=== PATIENT | female | born 1990 | race Caucasian/White ===

== ENCOUNTER 2016-06-02 20:22 | Emergency (ER) | payer SELFPAY ==
[~2016-06-02] VITALS: Ht 152.4 cm; Wt 61.0 kg
[~2016-06-02 20:22] MED LIST: ALPR0.5T PO; CEPH500C PO; FERR325T31; LORA1TAB PO; NAPR-688 PO; OXYC-283 PO
[2016-06-02 20:30] VITALS: Ht 152.4 cm; Wt 61.0 kg
[2016-06-02] MEDS ORDERED: BACTDS PO (21:27)
[2016-06-02] MEDS ORDERED: CEPH-443 PO (21:27)
--- NOTE | 2016-06-02 21:27 | ERD ---
ER Documentation Chief Complaint Date/Time DATE: 06/02/16 TIME: 21:25 Chief Complaint Pt reports bump on chin has been getting worse for 3 days HPI This is a 26-year-old female presents to the emergency room for evaluation of a bump on her chin. The patient states that she thinks was bit by a spider. She states it is been for 3 days and has been getting worse. She denies any fevers associated with this and came to the ER for evaluation. ROS All systems reviewed and are negative except as per history of present illness. Medications Home Meds Discontinued Reported Medications Ferrous Sulfate (Ferosul) 325 Mg Tablet 07/22/09 Allergies Allergies: Coded Allergies: No Known Allergy (Verified , 06/02/16) Physical Exam Vitals Vital Signs Date Time Temp Pulse Resp B/P Pulse Ox O2 Delivery O2 Flow Rate FiO2 06/02/16 20:30 98.5 91 20 125/75 98 Physical Exam Const: No acute distress Head: Cellulitis of chin, no fluctuance or abscess. Eyes: Normal Conjunctiva ENT: No pharyngeal edema or erythema normal External Ears, Nose and Mouth. Neck: Full range of motion..~ No meningismus. Resp: Clear to auscultation bilaterally Cardio: Regular rate and rhythm, no murmurs Abd: Soft, non tender, non distended. Normal bowel sounds Skin: No petechiae or rashes Back: No midline or flank tenderness Ext: No cyanosis, or edema Neur: Awake and alert Psych: Normal Mood and Affect Procedures/MDM This 26 oh female presents to the emergency room for evaluation of an abscess. I evaluated this patient she does have cellulitis of her chin likely from previous acne. This patient has no pharyngeal involvement or edema. She is in no respiratory distress. She is tolerating secretions. She is afebrile. She was given Keflex and Bactrim in the emergency room. She will be discharged home with a prescription for Keflex, Bactrim, [place] for breakthrough pain. Departure Diagnosis: Primary Impression: Cellulitis of chin Condition: Stable GIOVANA JORGENSEN DO Jun 02, 2016 21:27
[2016-06-02] MEDS ORDERED: HYDR-906 PO (21:28)
[2016-06-02] MEDS ORDERED: TRIMETHOPRIM/SULFAMETHOX (DS) TAB PO ONE (21:30)
[2016-06-02] MEDS ORDERED: CEPHALEXIN 500 MG CAP PO ONE (21:30)
[2016-06-02] MEDS ORDERED: HYDROCODONE/APAP (5/325) TAB PO ONE (21:30)
[2016-06-03] MEDS ORDERED: ONDA4TAB8 PO (11:32)
[2016-06-03] MEDS ORDERED: BEN25 PO (11:32)
== END 2016-06-02 22:03 | disposition home or self-care (01) ==
LOC: MERGE 20:22 → E/R 20:22
DX: L03.211 Cellulitis of face (principal); W57.XXXA Bitten or stung by nonvenomous insect and other nonvenomous arthropods, initial encounter; Y92.9 Unspecified place or not applicable
CPT/HCPCS: 99284

== ENCOUNTER 2016-06-03 09:03 | Emergency (ER) | payer MEDICAID ==
[~2016-06-03] VITALS: Wt 76.0 kg
[~2016-06-03 09:03] MED LIST changes: +BACTDS PO; +CEPH-443 PO; -FERR325T31; +HYDR-906 PO
[2016-06-03] MEDS ORDERED: ONDANSETRON 4 MG INJ IV STA (09:28)
[2016-06-03] MEDS ORDERED: SOD CHLORIDE 0.9% 1,000 ML IV STA (09:28)
[2016-06-03 09:46] LABS: URINE BLOOD (Dip) POC 3+ (NEGATIVE)
--- NOTE | 2016-06-03 09:47 | ERD ---
ER Documentation Chief Complaint Date/Time DATE: 06/03/16 TIME: 09:44 Chief Complaint VOMITING FOLLOWING NEW MEDICATION HPI This is a 26-year-old female presenting to the emergency department for vomiting and bilateral flank pain. Patient states she seen in the ED yesterday and started on 3 new medications: Bactrim, Keflex and Tomball. Patient states she was prescribed these for possible infection from a spider bite. Patient states soon after taking these medications he developed vomiting. Nonbloody, nonbilious emesis. Patient has not been able to tolerate anything by mouth for the past 6 hours. Patient states she is feeling dizzy. Dizziness worsens when she lies down. Denies abdominal pain or diarrhea. No cough, difficulty breathing or shortness of breath. ROS All systems reviewed and are negative except as per history of present illness. Medications Home Meds Active Scripts Diphenhydramine Hcl* (Benadryl*) 25 Mg Cap, 25 MG PO Q6, #15 CAP Prov:CHUNG DIAZ NP 06/03/16 Ondansetron Hcl* (Zofran*) 4 Mg Tablet, 4 MG PO Q6H for NAUSEA AND/OR VOMITING, #10 TAB Prov:CHUNG DIAZ NP 06/03/16 Alprazolam* (Xanax*) 0.5 Mg Tab, 0.5 MG PO Q8H Y for ANXIETY, #14 TAB Prov:SIDDHARTH JUARES DO 09/20/15 Naproxen* (Naproxen*) 500 Mg Tablet, 500 MG PO BID, #20 TAB Prov:SIDDHARTH JUARES DO 09/20/15 Cephalexin* (Cephalexin*) 500 Mg Capsule, 500 MG PO Q8, #21 CAP Prov:SIDDHARTH JUARES DO 09/20/15 Oxycodone Hcl-Acetaminophen* (Percocet*) 7.5-325 Mg Tablet, 1 TAB PO Q4H, #24 TAB Prov:SIDDHARTH JUARES DO 09/20/15 Lorazepam* (Lorazepam*) 1 Mg Tablet, 1 MG PO Q8H Y for ANXIETY, #10 TAB Prov:REBEKA CARRIZALES 08/20/15 Allergies Allergies: Coded Allergies: shellfish derived (Verified Allergy, Unknown, 08/20/15) PMhx/Soc History of Surgery: No Anesthesia Reaction: No Hx Neurological Disorder: No Hx Respiratory Disorders: No Hx Cardiac Disorders: No Hx Psychiatric Problems: No Hx Miscellaneous Medical Probl: No Hx Alcohol Use: Yes Hx Substance Use: No Hx Tobacco Use: Yes Smoking Status: Current some day smoker Physical Exam Vitals Vital Signs Date Time Temp Pulse Resp B/P Pulse Ox O2 Delivery O2 Flow Rate FiO2 06/03/16 11:58 98.1 88 18 108/67 99 Room Air 06/03/16 09:09 100.1 101 18 145/65 99 Physical Exam Const: No acute distress, alert Head: Atraumatic Eyes: Normal Conjunctiva ENT: Normal External Ears, Nose and Mouth. Neck: Full range of motion..~ No meningismus. Resp: Clear to auscultation bilaterally Cardio: Regular rate and rhythm, no murmurs Abd: Soft, non tender, non distended. Normal bowel sounds Skin: Small cyst to middle of chin. Surrounding erythema. No area of fluctuance. Back: No midline or flank tenderness Ext: No cyanosis, or edema Neur: Awake and alert Psych: Normal Mood and Affect Result Diagram: 06/03/16 0940 06/03/16 0940 Results 24 hrs Laboratory Tests Test 06/03/16 09:40 06/03/16 09:45 White Blood Count 15.410^3/ul Red Blood Count 4.8710^6/ul Hemoglobin 13.3g/dl Hematocrit 41.7% Mean Corpuscular Volume 85.6fl Mean Corpuscular Hemoglobin 27.3pg Mean Corpuscular Hemoglobin Concent 31.9g/dl Red Cell Distribution Width 16.5% Platelet Count 66030^3/UL Mean Platelet Volume 9.9fl Neutrophils % 85.0% Band Neutrophils % 7.0% Lymphocytes % 6.0% Monocytes % 2.0% Eosinophils % % Basophils % % Nucleated Red Blood Cells % /100WBC Neutrophils # 13.110^3/ul Lymphocytes # 0.910^3/ul Monocytes # 0.310^3/ul Eosinophils # 10^3/ul Basophils # 10^3/ul Nucleated Red Blood Cells # 10^3/ul Differential Comment MANUAL DIFF Sodium Level 141mmol/L Potassium Level 4.0mmol/L Chloride Level 101mmol/L Carbon Dioxide Level 26mmol/L Anion Gap 18 Blood Urea Nitrogen 12mg/dl Creatinine 0.87mg/dl Glucose Level 123mg/dl Calcium Level 10.0mg/dl Total Bilirubin 0.7mg/dl Direct Bilirubin 0.00mg/dl Indirect Bilirubin 0.7mg/dl Aspartate Amino Transf (AST/SGOT) 24IU/L Alanine Aminotransferase (ALT/SGPT) 21IU/L Alkaline Phosphatase 84IU/L Total Protein 9.3g/dl Albumin 5.1g/dl Globulin 4.20g/dl Albumin/Globulin Ratio 1.21 Bedside Urine pH (LAB) 6.0 Bedside Urine Protein (LAB) 1+ Bedside Urine Glucose (UA) Negative Bedside Urine Ketones (LAB) Trace Bedside Urine Blood 3+ Bedside Urine Nitrite (LAB) Negative Bedside Urine Leukocyte Esterase (L 1+ Current Medications Medications (Trade) Dose Ordered Sig/Luis Route PRN Reason Start Time Stop Time Status Last Admin Dose Admin Sodium Chloride (NS) 1,000 ml @ 1,000 mls/hr Q1H STAT IV 06/03/16 09:28 06/03/16 10:27 DC 06/03/16 09:44 Ondansetron HCl (Zofran Inj) 8 mg ONCE STAT IV 06/03/16 09:28 06/03/16 09:31 DC 06/03/16 09:44 Ketorolac Tromethamine (Toradol) 30 mg ONCE STAT IV 06/03/16 10:29 06/03/16 10:32 DC 06/03/16 10:36 Clindamycin Phosphate 600 mg 600 mg ONCE ONCE IV 06/03/16 11:00 06/03/16 11:01 Cancel Clindamycin HCl/ Dextrose (Cleocin 600 Mg/ D5W (Pmx)) 50 ml @ 50 mls/hr ONCE IVPB 06/03/16 11:00 06/03/16 11:59 DC 06/03/16 10:55 Procedures/MDM ED COURSE: The patient was stable throughout ED course. I kept the patient and/or family informed of laboratory and diagnostic imaging results throughout the ED course. Laboratory CBC shows WBC 15.4 CMP unremarkable Microbiology Influenza swab A negative Influenza swab B negative Imaging Patient: PARKER FAIRBANKS : 1990 Age: 26 Sex: F MR #: [id number] DOS: 06/03/16 1029 Ordering MD: CHUNG DIAZ NP Location: [facility] Room/Bed: PROCEDURE: CT Abdomen and Pelvis without contrast. CLINICAL INDICATION: Vomiting TECHNIQUE: CT of the abdomen and pelvis was performed on a multi-detector scanner without IV contrast. Coronal and sagittal images were reformatted from the axial data set. One or more of the following dose reduction techniques were used: automated exposure control, adjustment of the mA and/or kV according to patient size, use of iterative reconstruction technique. CTDI = 7.35 mGy. DLP = 414.76 mGy-cm. COMPARISON: Ultrasound, 08/20/2015 FINDINGS: CT abdomen: The lung bases are clear. The heart size is normal, without pericardial effusion. Liver, gallbladder, biliary tree, pancreas, spleen, adrenal glands and kidneys are unremarkable. There is no urolithiasis or obstructive uropathy. The stomach is grossly unremarkable. The aorta is of normal caliber. There is no retroperitoneal lymphadenopathy. The flor hepatis region is clear. CT pelvis: No bowel obstruction, free intraperitoneal air or abscess is identified. There is no diverticulosis, diverticulitis, or colitis. The appendix is well visualized and normal. IUD is seen in normal position within the uterus. Urinary bladder and adnexa are grossly unremarkable. No pelvic mass, free fluid or lymphadenopathy is identified. The surrounding osseous structures are unremarkable. No osteolytic or osteoblastic lesion is detected. IMPRESSION: 1. IUD is seen in normal position within the uterus. 2. Otherwise unremarkable CT of the abdomen and pelvis. MDM: 26-year-old female presents emergency department for vomiting and flank pain after starting 3 new medications yesterday. Patient was started on Bactrim , Keflex and Tomball yesterday for possible infection from spider bite. Patient states she is unable to tolerate anything by mouth. Upon arrival, patient has temp of 100.1F. IV access was obtained per icu staff nurse and patient was started on a 1 L IV fluid bolus of normal saline. Patient given 8 mg Zofran by IV. Labs were drawn per RN. Labs show WBC 15.4 otherwise unremarkable. Urine shows 1+ leukocyte Estrace, 3+ blood. Influenza swab negative . Dr. Ricci also examined the patient and we agree that patient may need another antibiotic. Patient given Clindamycin 600mg IV while in the ED. CT abdomen and pelvis was ordered. CT abdomen pelvis reviewed by radiologist as unremarkable. Patient states she is feeling much better. No active vomiting while in the ED. Low suspicion for appendicitis, cholecystitis, nephrolithiasis, septic kidney stone and sepsis. Differential diagnosis includes but not limited to viral gastroenteritis, influenza, allergic drug reaction,UTI, pyelonephritis, and abdominal pain not otherwise specified. Patient is appropriate for outpatient management and will be discharged with prescription for Zofran and Benadryl. Instructed patient to continue taking antibiotics as prescribed previously. Return to ED for any high fever, chest pain, difficulty breathing, shortness breath, wheezing, vomiting, diarrhea, abdominal pain or any new or worsening symptoms. Patient verbalizes understanding. All questions answered at discharge. Departure Diagnosis: Primary Impression: Flank pain Additional Impression: Vomiting Vomiting type: unspecified Vomiting Intractability: non-intractable Nausea presence: with nausea Qualified Code: R11.2 - Non-intractable vomiting with nausea, unspecified vomiting type Condition: CHUNG Barba NP Jun 03, 2016 09:47
[2016-06-03 09:50] LABS: ADD SCAN DIFF NO
[2016-06-03 09:52] LABS: ABNORMAL IP MESSAGE 1; HEMATOCRIT 41.7 % (37.0-47.0); HEMOGLOBIN 13.3 g/dl (12.0-16.0); MEAN CORPUSCULAR HEMOGLOBIN 27.3 pg (29.0-33.0); MEAN CORPUSCULAR HGB CONC 31.9 g/dl (32.0-37.0); MEAN CORPUSCULAR VOLUME 85.6 fl (82.0-101.0); MEAN PLATELET VOLUME 9.9 fl (7.4-10.4); PLATELET COUNT 314 10^3/UL (140-415); RED BLOOD COUNT 4.87 10^6/ul (4.20-5.40); RED CELL DISTRIBUTION WIDTH 16.5 % (11.5-14.5); WHITE BLOOD COUNT 15.4 10^3/ul (4.8-10.8)
[2016-06-03 10:12] LABS: ALBUMIN 5.1 g/dl (3.3-4.9)
[2016-06-03 10:14] LABS: BILIRUBIN,INDIRECT 0.7 mg/dl (0-1.1); BILIRUBIN,TOTAL 0.7 mg/dl (0.2-1.3); CREATININE 0.87 mg/dl (0.44-1.00)
[2016-06-03 10:15] LABS: ALBUMIN/GLOBULIN RATIO 1.21; TOTAL PROTEIN 9.3 g/dl (6.1-8.1)
[2016-06-03] MEDS ORDERED: KETOROLAC 30 MG INJ IV STA (10:29)
[2016-06-03 10:57] LABS: LYMPHOCYTES # 0.9 10^3/ul (0.8-2.9); MONOCYTE # 0.3 10^3/ul (0.3-0.9); NEUTROPHIL # 13.1 10^3/ul (1.6-7.5)
--- NOTE | 2016-06-03 10:57 | RADRPT ---
PROCEDURE: CT Abdomen and Pelvis without contrast. CLINICAL INDICATION: Vomiting TECHNIQUE: CT of the abdomen and pelvis was performed on a multi-detector scanner without IV contr ast. Coronal and sagittal images were reformatted from the axial data set. One or more of the foll owing dose reduction techniques were used: automated exposure control, adjustment of the mA and/or kV according to patient size, use of iterative reconstruction technique. CTDI = 7.35 mGy. DLP = 414 .76 mGy-cm. COMPARISON: Ultrasound, 08/20/2015 FINDINGS: CT abdomen: The lung bases are clear. The heart size is normal, without pericardial effusion. Liver, gallbladd er, biliary tree, pancreas, spleen, adrenal glands and kidneys are unremarkable. There is no urolit hiasis or obstructive uropathy. The stomach is grossly unremarkable. The aorta is of normal caliber. There is no retroperitoneal lymphadenopathy. The flor hepatis reg ion is clear. CT pelvis: No bowel obstruction, free intraperitoneal air or abscess is identified. There is no diverticulosis , diverticulitis, or colitis. The appendix is well visualized and normal. IUD is seen in normal po sition within the uterus. Urinary bladder and adnexa are grossly unremarkable. No pelvic mass, virgen e fluid or lymphadenopathy is identified. The surrounding osseous structures are unremarkable. No osteolytic or osteoblastic lesion is detect ed. IMPRESSION: 1. IUD is seen in normal position within the uterus. 2. Otherwise unremarkable CT of the abdomen and pelvis. RPTAT: QQ .Serafin Caceres MD, Date Time Electronically viewed and signed by .Serafin Caceres MD, on 06/03/2016 10:57 .R/
[2016-06-03] MEDS ORDERED: CLINDAMYCIN 600 MG/D5W (PMX) 50 ML IVPB SCH (11:00)
[2016-06-03] MEDS ORDERED: CLINDAMYCIN 300 MG INJ IV ONE (11:00)
[2016-06-03] MEDS ORDERED: ONDA4TAB8 PO (11:32)
[2016-06-03] MEDS ORDERED: BEN25 PO (11:32)
[2016-06-03 11:58] VITALS: BP 108/67; PULSE 88; RESP 18; TEMP 98.1
== END 2016-06-03 11:59 | disposition home or self-care (01) ==
LOC: FTE 09:03
DX: R10.9 Unspecified abdominal pain (principal); R11.2 Nausea with vomiting, unspecified
CPT/HCPCS: 36415; 74176; 80053; 81003; 85025; 87400; 96374; 96375; J1885; J2405; J7030; Z7502; Z7610

== ENCOUNTER 2016-06-03 13:49 | Emergency (ER) | payer SELFPAY ==
[~2016-06-03] VITALS: Wt 68.0 kg
[~2016-06-03 13:49] MED LIST changes: +BEN25 PO; +ONDA4TAB8 PO
== END 2016-06-03 18:30 | disposition left against medical advice (07) ==
LOC: E/R 13:49
DX: Z53.21 Procedure and treatment not carried out due to patient leaving prior to being seen by health care provider (principal)

== ENCOUNTER 2016-06-05 16:11 | Emergency (ER) | payer MEDICAID ==
[~2016-06-05] VITALS: Ht 160 cm; Wt 60.0 kg
[2016-06-05 16:13] VITALS: Ht 160 cm; Wt 60.0 kg
[2016-06-05] MEDS ORDERED: KETOROLAC 30 MG INJ IM STA (18:53)
[2016-06-05] MEDS ORDERED: OXYC-279 PO (18:54)
[2016-06-05 19:25] VITALS: BP 117/70; PULSE 77; RESP 16; TEMP 98.9
--- NOTE | 2016-06-05 22:07 | ERD ---
ER Documentation Chief Complaint Date/Time DATE: 06/05/16 TIME: 22:05 Chief Complaint spider bite on chin HPI 26-year-old woman complains of pain, redness, swelling to the mid monet 3-4 days. Basically a draining abscess she attributes to a spider bite. Her PMD prescribed cephalexin and double strength Bactrim which she has been using for 2 days, and is here for pain control. She denies worsening redness or swelling , no fevers or chills, no vomiting or diarrhea. ROS All systems reviewed and are negative except as per history of present illness. Medications Home Meds Active Scripts Oxycodone HCl/Acetaminophen (Percocet 5-325 mg Tablet) 1 Each Tablet, 1 EACH PO TID for PAIN LEVEL 6-10, #15 TAB Prov:MARY MISHRA MD 06/05/16 Diphenhydramine Hcl* (Benadryl*) 25 Mg Cap, 25 MG PO Q6, #15 CAP Prov:CHUNG DIAZ NP 06/03/16 Ondansetron Hcl* (Zofran*) 4 Mg Tablet, 4 MG PO Q6H for NAUSEA AND/OR VOMITING, #10 TAB Prov:CHUNG DIAZ NP 06/03/16 Hydrocodone/Acetaminophen ([place] 5-325 Tablet) 1 Each Tablet, 1 TAB PO Q6H Y for PAIN, #10 TAB Prov:GIOVANA JORGENSEN DO 06/02/16 Cephalexin* (Keflex*) 500 Mg Capsule, 500 MG PO QID for 10 Days, CAP Prov:GIOVANA JORGENSEN DO 06/02/16 Sulfamethoxazole-Trimethoprim* (Bactrim* DS) 800-160 Mg Tab, 1 TAB PO BID for 10 Days, TAB Prov:GIOVANA JORGENSEN 06/02/16 Alprazolam* (Xanax*) 0.5 Mg Tab, 0.5 MG PO Q8H Y for ANXIETY, #14 TAB Prov:SIDDHARTH JUARES 09/20/15 Naproxen* (Naproxen*) 500 Mg Tablet, 500 MG PO BID, #20 TAB Prov:SIDDHARTH JUARES DO 09/20/15 Cephalexin* (Cephalexin*) 500 Mg Capsule, 500 MG PO Q8, #21 CAP Prov:SIDDHARTH JUARES DO 09/20/15 Oxycodone Hcl-Acetaminophen* (Percocet*) 7.5-325 Mg Tablet, 1 TAB PO Q4H, #24 TAB Prov:SIDDHARTH JUARES DO 09/20/15 Lorazepam* (Lorazepam*) 1 Mg Tablet, 1 MG PO Q8H Y for ANXIETY, #10 TAB Prov:REBEKA CARRIZALES 08/20/15 Discontinued Reported Medications Ferrous Sulfate (Ferosul) 325 Mg Tablet 07/22/09 Allergies Allergies: Coded Allergies: shellfish derived (Verified Allergy, Unknown, 08/20/15) PMhx/Soc None Medical and Surgical Hx: pt denies Medical Hx, pt denies Surgical Hx History of Surgery: No Anesthesia Reaction: No Hx Neurological Disorder: No Hx Respiratory Disorders: No Hx Cardiac Disorders: No Hx Psychiatric Problems: No Hx Miscellaneous Medical Probl: No Hx Alcohol Use: Yes (OCCASSIONAL) Hx Substance Use: Yes (OCCASIONAL MARIJUANA) Hx Tobacco Use: Yes (OCCASIONAL CIGARETTES) Smoking Status: Current some day smoker FmHx Family History: No diabetes Physical Exam Vitals Vital Signs Date Time Temp Pulse Resp B/P Pulse Ox O2 Delivery O2 Flow Rate FiO2 06/05/16 19:25 98.9 77 16 117/70 96 06/05/16 16:13 98.9 90 18 117/56 98 Physical Exam GENERAL: Well-developed, well-nourished, well-hydrated, in no apparent distress , looks nontoxic in appearance HEENT: 2 cm erythematous, tender, draining abscess to the mid monet, moist mucous membranes, pink conjunctiva, no cervical spine tenderness or step-off deformities, no goiter, no jaundice or icterus, extraocular movements intact without pain. No submandibular induration, and no pharyngeal erythema NEURO: Alert and oriented 3, cranial nerves II through XII intact bilaterally, pupils equal round reactive to light, no focal deficits or facial asymmetry, sensation intact distally Strength 5/5 in upper and lower extremities bilaterally CARDIAC: Regular rate and rhythm, no murmurs rubs or gallops LUNGS: Clear bilaterally no wheezing crackles or stridor ABDOMEN: Soft nontender, no guarding, no rigidity, no rebound, no psoas sign no obturator sign. Normoactive bowel sounds SKIN: Warm and dry to touch, 2 cm erythematous tender draining abscess to the mid monet, no target lesions, and without ulcers EXTREMITIES: No clubbing cyanosis or edema, calves are bilaterally symmetrical, no Homans sign, no popliteal cord sign. Distal pulses equal and bilateral PSYCH: Normal affect without agitation or irritability Results 24 hrs Current Medications Medications (Trade) Dose Ordered Sig/Luis Route PRN Reason Start Time Stop Time Status Last Admin Dose Admin Ketorolac Tromethamine (Toradol) 30 mg ONCE STAT IM 06/05/16 18:53 06/05/16 18:54 DC 06/05/16 19:00 Procedures/MDM I administered Toradol 30 mg intramuscular injection for pain control. Reassurance was provided to her and I recommended she continue her antibiotics, for pain control I prescribed her Percocet as needed for severe pain should it recur. Patient feels much better at this time, and vital signs are normal, symptoms have improved. I did give strict instructions to return to the ED if symptoms continue or worsen, patient will otherwise follow-up with primary care physician. Patient understood instructions and agreed to plan. Departure Diagnosis: Primary Impression: Abscess Condition: Good Patient Instructions: Cellulitis, Facial, Abscess (, Incision And Drainage) MARY MISHRA MD Jun 05, 2016 22:07
== END 2016-06-05 19:26 | disposition home or self-care (01) ==
LOC: FTE 16:11
DX: L02.01 Cutaneous abscess of face (principal); F17.210 Nicotine dependence, cigarettes, uncomplicated
CPT/HCPCS: 96372; J1885

== ENCOUNTER 2016-08-05 09:22 | Emergency (ER) | payer MEDICAID ==
[~2016-08-05] VITALS: Ht 152.4 cm; Wt 58.5 kg
[~2016-08-05 09:22] MED LIST changes: +OXYC-279 PO
[2016-08-05 09:26] VITALS: Ht 152.4 cm; Wt 58.5 kg
[2016-08-05] MEDS ORDERED: ONDANSETRON (ODT) 4 MG TAB ODT STA (10:29)
[2016-08-05] MEDS ORDERED: DIPHENHYDRAMINE 25 MG CAP PO ONE (10:30)
--- NOTE | 2016-08-05 10:49 | ERD ---
ER Documentation Chief Complaint Date/Time DATE: 08/05/16 TIME: 10:41 Chief Complaint R EYE PAIN AND SWELLING FREEMAN HPI 26-year-old female who presents the emergency department today complaining of some right eye pain and swelling. States that she woke up this morning with it. States she stated a hotel last night and thinks she may have gotten bit by a spider or something. States that she also feels nauseated has some pain in the right side of her face. States that she is worried that this is going to affect her because "someone ejaculated in her knee 2 days ago". Denies any abdominal pain, headache fevers or chills. ROS All systems reviewed and are negative except as per history of present illness. Medications Home Meds Active Scripts Ibuprofen* (Motrin*) 600 Mg Tab, 600 MG PO Q6, #30 TAB Prov:GABRIEL THOMSON PA-C 08/05/16 Ondansetron Hcl* (Zofran*) 4 Mg Tablet, 4 MG PO Q6H for NAUSEA AND/OR VOMITING, #30 TAB Prov:GABRIEL THOMSON PA-C 08/05/16 Diphenhydramine Hcl* (Benadryl*) 25 Mg Cap, 25 MG PO Q6, #30 CAP Prov:GABRIEL THOMSON PA-C 08/05/16 Amoxicillin/Potassium Clav (Amox-Clav 875-125 mg Tablet) 875-125 mg Tab, 1 TAB PO BID for 7 Days, #14 TAB Prov:GABRIEL THOMSON PA-C 08/05/16 Sulfamethoxazole/Trimethoprim* (Bactrim Ds* Tablet) 1 Each Tablet, 1 TAB PO BID for 7 Days, #14 TAB Prov:GABRIEL THOMSON PA-C 08/05/16 Oxycodone HCl/Acetaminophen (Percocet 5-325 mg Tablet) 1 Each Tablet, 1 EACH PO TID for PAIN LEVEL 6-10, #15 TAB Prov:MARY MISHRA MD 06/05/16 Diphenhydramine Hcl* (Benadryl*) 25 Mg Cap, 25 MG PO Q6, #15 CAP Prov:CHUNG DIAZ NP 06/03/16 Ondansetron Hcl* (Zofran*) 4 Mg Tablet, 4 MG PO Q6H for NAUSEA AND/OR VOMITING, #10 TAB Prov:CHUNG DIAZ ELEMENTARY EDUCATOR 06/03/16 Hydrocodone/Acetaminophen ([place] 5-325 Tablet) 1 Each Tablet, 1 TAB PO Q6H Y for PAIN, #10 TAB Prov:GIOVANA JORGENSEN DO 06/02/16 Cephalexin* (Keflex*) 500 Mg Capsule, 500 MG PO QID for 10 Days, CAP Prov:GIOVANA JORGENSEN 06/02/16 Sulfamethoxazole-Trimethoprim* (Bactrim* DS) 800-160 Mg Tab, 1 TAB PO BID for 10 Days, TAB Prov:GIOVANA JORGENSEN 06/02/16 Alprazolam* (Xanax*) 0.5 Mg Tab, 0.5 MG PO Q8H Y for ANXIETY, #14 TAB Prov:SIDDHARTH JUARES 09/20/15 Naproxen* (Naproxen*) 500 Mg Tablet, 500 MG PO BID, #20 TAB Prov:SIDDHARTH JUARES 09/20/15 Cephalexin* (Cephalexin*) 500 Mg Capsule, 500 MG PO Q8, #21 CAP Prov:SIDDHARTH JUARES 09/20/15 Oxycodone Hcl-Acetaminophen* (Percocet*) 7.5-325 Mg Tablet, 1 TAB PO Q4H, #24 TAB Prov:SIDDHARTH JUARES 09/20/15 Lorazepam* (Lorazepam*) 1 Mg Tablet, 1 MG PO Q8H Y for ANXIETY, #10 TAB Prov:REBEKA CARRIZALES 08/20/15 Allergies Allergies: Coded Allergies: shellfish derived (Verified Allergy, Unknown, 08/05/16) PMhx/Soc History of Surgery: No Anesthesia Reaction: No Hx Neurological Disorder: No Hx Respiratory Disorders: No Hx Cardiac Disorders: No Hx Psychiatric Problems: No Hx Miscellaneous Medical Probl: No Hx Alcohol Use: Yes (OCCASSIONAL) Hx Substance Use: Yes (OCCASIONAL MARIJUANA) Hx Tobacco Use: Yes (OCCASIONAL CIGARETTES) Smoking Status: Current every day smoker Physical Exam Vitals Vital Signs Date Time Temp Pulse Resp B/P Pulse Ox O2 Delivery O2 Flow Rate FiO2 08/05/16 09:26 98.7 91 18 134/83 97 Physical Exam Const: No acute distress Head: Atraumatic mild tenderness right side of jaw Eyes: Normal Conjunctiva. PERRLA. EOM intact. No pain with eye movement ENT: Normal External Ears, Nose and Mouth. Neck: Full range of motion..~ No meningismus. Resp: Clear to auscultation bilaterally Cardio: Regular rate and rhythm, no murmurs Abd: Soft, non tender, non distended. Normal bowel sounds Skin: No petechiae or rashes Neur: Awake and alert Psych: Normal Mood and Affect Results 24 hrs Current Medications Medications (Trade) Dose Ordered Sig/Luis Route PRN Reason Start Time Stop Time Status Last Admin Dose Admin Diphenhydramine HCl (Benadryl) 25 mg ONCE ONCE PO 08/05/16 10:30 08/05/16 10:31 DC 08/05/16 10:42 Ondansetron HCl (Zofran Odt) 4 mg ONCE STAT ODT 08/05/16 10:29 08/05/16 10:30 DC 08/05/16 10:42 Procedures/MDM This a 26-year-old female who presents the emergency department today complaining of right eye pain and swelling pain on the right side of her face after which she thinks was being bit by an insect last night and some nausea. Patient was also worried that this would affect her as "some ejaculate it in her 2 days ago". Patient did indicate she is trying to get . She was not requesting a test. She has no abdominal pain on physical exam. Do not feel the patient requires laboratory workup or imaging at this time. Patient did have some localized erythema on her upper eyelid and she had some tenderness palpation. Patient symptoms at this time most consistent with possible infected insect bite and localized periorbital versus preseptal cellulitis secondary to insect bite. Patient has no pain with eye movement and have low suspicion for orbital cellulitis. She is afebrile and otherwise well- appearing. I did do a visual acuity. Patient indicated she is supposed to wear glasses and does not. Right eye 20/50 Left eye 20/70 Bilateral 20/50 Patient was given Benadryl and Zofran here in the emergency department. She will be given a prescription for Benadryl, Zofran for home Patient will be given a prescription for Bactrim, Augmentin,Zofran and Benadryl and Jane Discussed the patient with Dr. Ricci and he is in agreement with the plan. Departure Diagnosis: Primary Impression: Infected insect bite Encounter type: initial encounter Qualified Code: W57.XXXA - Infected insect bite, initial encounter Additional Impression: Eye problem Condition: Fair GABRIEL THOMSON PA-C Aug 05, 2016 10:49
[2016-08-05] MEDS ORDERED: SULF1TAB31 PO (11:23)
[2016-08-05] MEDS ORDERED: BEN25 PO (11:23)
[2016-08-05] MEDS ORDERED: AMOX1TAB10 PO (11:23)
[2016-08-05] MEDS ORDERED: ONDA4TAB8 PO (11:23)
[2016-08-05] MEDS ORDERED: IBUP-1542 PO (11:24)
[2016-08-06] MEDS ORDERED: IBUP-1542 PO (22:12)
[2016-08-06] MEDS ORDERED: BACL10TA PO (22:12)
== END 2016-08-05 11:25 | disposition home or self-care (01) ==
LOC: FTE 09:22
DX: S00.261A Insect bite (nonvenomous) of right eyelid and periocular area, initial encounter (principal); F17.210 Nicotine dependence, cigarettes, uncomplicated; W57.XXXA Bitten or stung by nonvenomous insect and other nonvenomous arthropods, initial encounter; Y92.9 Unspecified place or not applicable
CPT/HCPCS: Z7502; Z7610; 99284

== ENCOUNTER 2016-08-06 18:39 | Emergency (ER) | payer MEDICAID ==
[~2016-08-06] VITALS: Ht 152.4 cm; Wt 59.5 kg
[~2016-08-06 18:39] MED LIST changes: +AMOX1TAB10 PO; +IBUP-1542 PO; +SULF1TAB31 PO
[2016-08-06 18:41] VITALS: Ht 152.4 cm; Wt 59.5 kg
[2016-08-06] MEDS ORDERED: KETOROLAC 30 MG INJ IM STA (19:15)
[2016-08-06 19:52] LABS: ADD UMIC YES; URINE BILIRUBIN (Dip) NEGATIVE (NEGATIVE); URINE BLOOD (Dip) 3+ (NEGATIVE); URINE COLOR LT. YELLOW (YELLOW); URINE GLUCOSE (Dip) NEGATIVE (NEGATIVE); URINE KETONES (Dip) NEGATIVE (NEGATIVE); URINE LEUKOCYTE ESTERASE (Dip) 1+ (NEGATIVE); URINE NITRITE (Dip) NEGATIVE (NEGATIVE); URINE TOTAL PROTEIN (Dip) NEGATIVE (NEGATIVE); URINE UROBILINOGEN (Dip) 0.2 E.U./dL (0.1-1.0)
[2016-08-06 20:08] LABS: BACTERIA,URINE MODERATE; SQUAMOUS EPITHELIAL CELL,UR MODERATE; URINE RBCS >200 /HPF (0)
[2016-08-06] MEDS ORDERED: HYDROCODONE/APAP (5/325) TAB PO ONE (20:30)
--- NOTE | 2016-08-06 20:37 | ERD ---
ER Documentation Chief Complaint Date/Time DATE: 08/06/16 TIME: 20:30 Chief Complaint FELL ON TRAMPOLINE, NOW WITH PAIN THROUGHOUT ENTIRE BACK. SOB, VAG BLEED HPI Patient is a 26-year-old female who presents to the emergency department with back pain and left-sided rib pain after falling on the trampoline. Patient states she was jumping around when she fell onto her back and "twisted up like a scorpion's tail". Patient reports severe pain on the left side of her body. Patient states her entire back hurts. Patient also states that the pain radiates of the pain down her bilateral legs. Patient denies any saddle anesthesia, urinary incontinence, stool incontinence, fever or chills. Patient denies any previous injuries to her back. Patient states that she started having vaginal bleeding after her fall injury. Patient does report a history of irregular menstrual periods. She states that she has had 2 periods in the last month given that she had her Beryl IUD removed. Patient denies any abdominal pain or pelvic pain at this time. ROS All systems reviewed and are negative except as per history of present illness. Medications Home Meds Active Scripts Baclofen* (Baclofen*) 10 Mg Tablet, 10 MG PO Q8, #10 TAB Prov:PARUL NEVAREZ PA-C 08/06/16 Ibuprofen* (Motrin*) 600 Mg Tab, 600 MG PO Q6, #30 TAB Prov:PARUL NEVAREZ PA-C 08/06/16 Ibuprofen* (Motrin*) 600 Mg Tab, 600 MG PO Q6, #30 TAB Prov:GABRIEL THOMSON PA-C 08/05/16 Ondansetron Hcl* (Zofran*) 4 Mg Tablet, 4 MG PO Q6H for NAUSEA AND/OR VOMITING, #30 TAB Prov:GABRIEL THOMSON PA-C 08/05/16 Diphenhydramine Hcl* (Benadryl*) 25 Mg Cap, 25 MG PO Q6, #30 CAP Prov:GABRIEL THOMSON PA-C 08/05/16 Amoxicillin/Potassium Clav (Amox-Clav 875-125 mg Tablet) 875-125 mg Tab, 1 TAB PO BID for 7 Days, #14 TAB Prov:GABRIEL THOMSON PA-C 08/05/16 Sulfamethoxazole/Trimethoprim* (Bactrim Ds* Tablet) 1 Each Tablet, 1 TAB PO BID for 7 Days, #14 TAB Prov:GABRIEL THOMSON PA-C 08/05/16 Oxycodone HCl/Acetaminophen (Percocet 5-325 mg Tablet) 1 Each Tablet, 1 EACH PO TID for PAIN LEVEL 6-10, #15 TAB Prov:MARY MISHRA MD 06/05/16 Diphenhydramine Hcl* (Benadryl*) 25 Mg Cap, 25 MG PO Q6, #15 CAP Prov:CHUNG DIAZ NP 06/03/16 Ondansetron Hcl* (Zofran*) 4 Mg Tablet, 4 MG PO Q6H for NAUSEA AND/OR VOMITING, #10 TAB Prov:CHUNG DIAZ NP 06/03/16 Hydrocodone/Acetaminophen ([place] 5-325 Tablet) 1 Each Tablet, 1 TAB PO Q6H Y for PAIN, #10 TAB Prov:GIOVANA JORGENSEN DO 06/02/16 Cephalexin* (Keflex*) 500 Mg Capsule, 500 MG PO QID for 10 Days, CAP Prov:GIOVANA JORGENSEN DO 06/02/16 Sulfamethoxazole-Trimethoprim* (Bactrim* DS) 800-160 Mg Tab, 1 TAB PO BID for 10 Days, TAB Prov:GIOVANA JORGENSEN DO 06/02/16 Alprazolam* (Xanax*) 0.5 Mg Tab, 0.5 MG PO Q8H Y for ANXIETY, #14 TAB Prov:SIDDHARTH JUARES DO 09/20/15 Naproxen* (Naproxen*) 500 Mg Tablet, 500 MG PO BID, #20 TAB Prov:SIDDHARTH JUARES DO 09/20/15 Cephalexin* (Cephalexin*) 500 Mg Capsule, 500 MG PO Q8, #21 CAP Prov:SIDDHARTH JUARES DO 09/20/15 Oxycodone Hcl-Acetaminophen* (Percocet*) 7.5-325 Mg Tablet, 1 TAB PO Q4H, #24 TAB Prov:SIDDHARTH JUARES DO 09/20/15 Lorazepam* (Lorazepam*) 1 Mg Tablet, 1 MG PO Q8H Y for ANXIETY, #10 TAB Prov:REBEKA CARRIZALES 08/20/15 Allergies Allergies: Coded Allergies: shellfish derived (Verified Allergy, Unknown, 08/05/16) PMhx/Soc Medical and Surgical Hx: pt denies Medical Hx, pt denies Surgical Hx History of Surgery: No Anesthesia Reaction: No Hx Neurological Disorder: No Hx Respiratory Disorders: No Hx Cardiac Disorders: No Hx Psychiatric Problems: No Hx Miscellaneous Medical Probl: No Hx Alcohol Use: Yes (OCCASSIONAL) Hx Substance Use: Yes (OCCASIONAL MARIJUANA) Hx Tobacco Use: Yes (OCCASIONAL CIGARETTES) Smoking Status: Current some day smoker FmHx Family History: No diabetes Physical Exam Vitals Vital Signs Date Time Temp Pulse Resp B/P Pulse Ox O2 Delivery O2 Flow Rate FiO2 08/06/16 22:28 87 18 115/54 98 Room Air 08/06/16 18:41 99.0 79 22 129/80 96 Physical Exam GENERAL: Well-developed, well-nourished female. Appears in pain, crying. Refusing to be on gurney. HEAD: Normocephalic, atraumatic. EYES: Pupils are equally reactive bilaterally. EOMs grossly intact. No conjunctival erythema. ENT: Moist mucous membranes. No uvula deviation. No kissing tonsils. NECK: Supple. No meningismus. Normal range of motion of the neck. LUNG: Clear to auscultation bilaterally. No rhonchi, wheezing, rales or coarse breath sounds. LEFT RIBS: Upon minimal palpation, patient is tender to the left ribs. No ecchymosis or swelling noted. HEART: Regular rate and rhythm. No murmurs, rubs or gallops. ABDOMEN: Diffusing to lie down, unable to examine abdomen. BACK: Upon minimal palpation, patient is tender in the thoracic and lumbar spines. No ecchymosis or swelling noted. EXTREMITIES: Equal pulses bilaterally. No peripheral clubbing, cyanosis or edema. No unilateral leg swelling. NEUROLOGIC: Alert and oriented. Moving all four extremities without any difficulty. Normal speech. SKIN: Normal color. Warm and dry. No rashes or lesions. Results 24 hrs Laboratory Tests Test 08/06/16 19:30 Urine Color LT. YELLOW Urine Clarity SLIGHTLY CLOUDY Urine pH 5.0 Urine Specific [place] 1.020 Urine Ketones NEGATIVE Urine Nitrite NEGATIVE Urine Bilirubin NEGATIVE Urine Urobilinogen 0.2 E.U./dL Urine Leukocyte Esterase 1+ Urine Microscopic RBC >200/HPF Urine Microscopic WBC 2-5/HPF Urine Squamous Epithelial Cells MODERATE Urine Bacteria MODERATE Urine Hemoglobin 3+ Urine Glucose NEGATIVE% Urine Total Protein NEGATIVE Current Medications Medications (Trade) Dose Ordered Sig/Luis Route PRN Reason Start Time Stop Time Status Last Admin Dose Admin Ketorolac Tromethamine (Toradol) 30 mg ONCE STAT IM 08/06/16 19:15 08/06/16 19:19 DC 08/06/16 19:29 Acetaminophen/ Hydrocodone Bitart ([place] (5/325)) 1 tab ONCE ONCE PO 08/06/16 20:30 08/06/16 20:31 DC 08/06/16 20:15 Procedures/MDM ED COURSE: The patient was stable throughout ED course. I kept the patient and/or family informed of laboratory and diagnostic imaging results throughout the ED course. DIAGNOSTIC IMAGING: Read by radiologist. DIAGNOSTIC IMAGING REPORT Patient: PARKER FAIRBANKS : 1990 Age: 26 Sex: F MR #: [id number] DOS: 08/06/162036 Ordering MD: PARUL NEVAREZ PA-C Location: [facility] Room/Bed: PROCEDURE: CT chest without contrast CLINICAL INDICATION: Status post fall with left rib pain TECHNIQUE: CT scan of the chest with contrast was performed without intravenous contrast. Coronal and sagittal images were reformatted. The CTDIvol = 5.18 mGy and DLP = 212.69 mGycm. COMPARISON: None. FINDINGS: Lungs, airway and pleura: The trachea and bronchi are patent as well as normal in caliber. The lungs are clear. There is no evidence of pneumothorax. The pleural spaces are clear, without effusions. Mediastinum, heriberto and cardiovascular: The heart is normal in size. There is no evidence for pericardial effusion. The thoracic aorta is normal in caliber. There is no evidence for hilar mass and no mediastinal adenopathy is present. The esophagus is normal in caliber. Osseous structures and musculoskeletal findings: No erosive displaced rib fracture. The thoracic spine, sternum and visualized shoulders are unremarkable. No chest wall abnormalities are present. The axillary regions are unremarkable. Visualized upper abdomen: No abnormalities are identified. The adrenal glands are normal bilaterally. RPTAT:HJJR IMPRESSION: 1. Unremarkable CT scan of the chest without contrast. 2. No evidence of acute post traumatic abnormality. Physician Snehal Date Time Electronically viewed and signed by Physician Snehal on 08/06/2016 21:46 JR/ CC: PARUL NEVAREZ PA-C DIAGNOSTIC IMAGING REPORT Patient: PARKER FAIRBANKS : 1990 Age: 26 Sex: F MR #: [id number] DOS: 08/06/162036 Ordering MD: PARUL NEVAREZ PA-C Location: [facility] Room/Bed: PROCEDURE: CT chest without contrast CLINICAL INDICATION: Status post fall with left rib pain TECHNIQUE: CT scan of the chest with contrast was performed without intravenous contrast. Coronal and sagittal images were reformatted. The CTDIvol = 5.18 mGy and DLP = 212.69 mGycm. COMPARISON: None. FINDINGS: Lungs, airway and pleura: The trachea and bronchi are patent as well as normal in caliber. The lungs are clear. There is no evidence of pneumothorax. The pleural spaces are clear, without effusions. Mediastinum, hreiberto and cardiovascular: The heart is normal in size. There is no evidence for pericardial effusion. The thoracic aorta is normal in caliber. There is no evidence for hilar mass and no mediastinal adenopathy is present. The esophagus is normal in caliber. Osseous structures and musculoskeletal findings: No erosive displaced rib fracture. The thoracic spine, sternum and visualized shoulders are unremarkable. No chest wall abnormalities are present. The axillary regions are unremarkable. Visualized upper abdomen: No abnormalities are identified. The adrenal glands are normal bilaterally. RPTAT:HJJR IMPRESSION: 1. Unremarkable CT scan of the chest without contrast. 2. No evidence of acute post traumatic abnormality. Physician Snehal Date Time Electronically viewed and signed by Physician Snehal on 08/06/2016 21:46 JR/ CC: PARUL NEVAREZ PA-C .DIAGNOSTIC IMAGING REPORT Patient: PARKER FAIRBANKS : 1990 Age: 26 Sex: F MR #: [id number] DOS: 08/06/162036 Ordering MD: PARUL NEVAREZ PA-C Location: [facility] Room/Bed: PROCEDURE: CT pelvis without contrast. CLINICAL INDICATION: Status post fall with post traumatic pelvic pain TECHNIQUE: CT scan of the pelvis without contrast was performed. Sagittal and coronal reformatted images were obtained from the axial source images. CTDI = 7.24 mGy; DLP = 206.22 mGy-cm COMPARISON: None. FINDINGS: Osseous structures: Incidental transitional anatomy at the lumbosacral junction. The sacrum and coccyx appear intact without evidence of fracture. No pelvic bone fracture is seen, the bone architecture and mineralization are preserved. The femoral heads are normal in contour and location without fracture dislocation Musculature and soft tissues: No hematoma, muscular or subcutaneous tissue abnormality is identified. Other findings: Intrapelvic structures are unremarkable. There is no evidence of free fluid RPTAT:HJJR IMPRESSION: Unremarkable CT scan of the pelvis without contrast. Physician Snehal Date Time Electronically viewed and signed by Physician Snehal on 08/06/2016 21:50 JR/ CC: PARUL NEVAREZ PA-C DIAGNOSTIC IMAGING REPORT Patient: PARKER FAIRBANKS : 1990 Age: 26 Sex: F MR #: [id number] DOS: 08/06/162036 Ordering MD: PARUL NEVAREZ PA-C Location: [facility] Room/Bed: PROCEDURE: CT thoracic spine without contrast. CLINICAL INDICATION: Post traumatic back pain. Status post fall. TECHNIQUE: CT of the thoracic spine was performed. Axial images were obtained and reformatted at 2.5 mm slice thickness. Coronal and sagittal images were reformatted. Exam CTDIvol = 8.81 mGy and DLP = 304.40 mGy-cm. COMPARISON: None available. FINDINGS: Vertebral bodies: There is preservation of attenuation, mineralization and bony architecture. The thoracic kyphosis is preserved. No lytic or blastic lesions are present. Thoracic spinal cord: No abnormal densities seen within the spinal canal.. T1-2: No discogenic abnormality of significance is seen and there is no central canal or foraminal stenosis. The posterior elements are unremarkable. T2-3: No discogenic abnormality of significance is seen and there is no central canal or foraminal stenosis. The facet joints are intact. T3-4: No discogenic abnormalities significance is seen and there is no acute pathology, central canal or foraminal stenosis. The posterior elements are unremarkable T4-5: No discogenic abnormality of significance is seen and there is no facet arthropathy, central canal or foraminal stenosis. T5-6: No discogenic abnormality of significance is seen and there is no facet arthropathy, central canal or foraminal stenosis T6-7: No discogenic abnormality of significance is seen there is no central canal stenosis. The posterior elements are unremarkable. T7-8: No discogenic abnormality of significance is seen and there is no facet arthropathy, central canal or foraminal stenosis T8-9: No discogenic abnormality of significance is seen and there is no facet arthropathy, central canal or foraminal stenosis T9-10: No discogenic abnormality of significance is seen and there is no facet arthropathy, central canal or foraminal stenosis T10-11: No discogenic abnormality of significance is seen and there is no facet arthropathy, central canal or foraminal stenosis T11-12: No discogenic abnormality of significance is seen and there is no facet arthropathy, central canal or foraminal stenosis T12-L1: No discogenic abnormality of significance is seen and there is no facet arthropathy, central canal or foraminal stenosis Non spine related findings: No abnormalities of significance are demonstrated. RPTAT:HJJR IMPRESSION: 1. Unremarkable noncontrast CT the thoracic spine. Physician Snehal Date Time Electronically viewed and signed by Sotero Lott Physician on 08/06/2016 21:43 JR/ CC: PARUL NEVAREZ PA-C PROCEDURES: None. MEDICATIONS GIVEN: Toradol IM, [place] Patient tolerated medication well with no adverse reactions. MEDICAL DECISION MAKING: This is a 26-year-old female who presents with pain throughout her entire back and left ribs after falling while jumping on the trampoline earlier today. Vital signs were reviewed. Patient was afebrile. She was not hypoxic. Patient denied any saddle anesthesia, urinary incontinence, bowel incontinence. Patient was initially medicated with Toradol IM. Patient continued to have severe pain that she was given [place]. Initially after imaging of the patient's spine and left ribs were ordered. I was contacted by radiology staff that patient refused to cooperate for xray imaging studies. Per the request of radiology staff, patient's imaging studies were canceled. CT imaging studies were obtained of the patient's chest, thoracic spine, lumbar spine and pelvis. CT imaging of the patient's chest was negative. CT imaging of the thoracic spine was negative. CT imaging of the lumbar spine was negative. CT imaging of the pelvis was negative. Upon discussing the patient's results with her in the results waiting room, patient was noted to be laughing with her friend present while on her cell phone. Patient no longer displayed signs of distress. Given these findings, the patient's presentation is most consistent with lumbar strain and rib contusion. I have a much lower clinical concern for cauda equine syndrome, spinal fractures, epidural abscess, spinal metastases, osteomyelitis, UTI, pyelonephritis, nephrolithiasis, rib fracture, pneumothorax. Patient's vaginal bleeding is likely due to irregular menses. PRESCRIPTIONS: Ibuprofen Baclofen DISCHARGE: At this time, patient is stable for discharge and outpatient management. RICE therapy and ROM exercises were advised to avoid stiffness. I have instructed the patient to follow-up with his/her primary care physician in 1-2 days. I have discussed with the patient the possibility of needing to see an waste management specialist for further workup and imaging if the pain persists. I have instructed the patient to promptly return to the ER for any new or worsening symptoms including increased pain, swelling, warmth, urinary incontinence, stool incontinence, weakness or numbness. The patient and/or family expressed understanding of and agreement with this plan. All questions were answered. Home care instructions were provided. Departure Diagnosis: Primary Impression: Back pain Back pain location: back pain in unspecified location Chronicity: unspecified Back pain laterality: unspecified Qualified Code: M54.9 - Back pain, unspecified back location, unspecified back pain laterality, unspecified chronicity Additional Impression: Rib pain on left side Condition: Stable Patient Instructions: Back Pain (Acute Or Chronic), Rib Contusion Referrals: [facility] YOU HAVE RECEIVED A MEDICAL SCREENING EXAM AND THE RESULTS INDICATE THAT YOU DO NOT HAVE A CONDITION THAT REQUIRES URGENT TREATMENT IN THE EMERGENCY DEPARTMENT. FURTHER EVALUATION AND TREATMENT OF YOUR CONDITION CAN WAIT UNTIL YOU ARE SEEN IN YOUR DOCTORS OFFICE WITHIN THE NEXT 1-2 DAYS. IT IS YOUR RESPONSIBILITY TO MAKE AN APPOINTMENT FOR FOLOW-UP CARE. IF YOU HAVE A PRIMARY DOCTOR --you should call your primary doctor and schedule an appointment IF YOU DO NOT HAVE A PRIMARY DOCTOR YOU CAN CALL OUR PHYSICIAN REFERRAL HOTLINE AT IF YOU CAN NOT AFFORD TO SEE A PHYSICIAN YOU CAN CHOSE FROM THE FOLLOWING [facility] [address] [facility]. [facility] [address] [facility]. [facility] [address] [facility]. [facility] [address] [facility]. [facility] [address] [facility]. [facility]. [address] [facility]. [facility] YOU HAVE RECEIVED A MEDICAL SCREENING EXAM AND THE RESULTS INDICATE THAT YOU DO NOT HAVE A CONDITION THAT REQUIRES URGENT TREATMENT IN THE EMERGENCY DEPARTMENT. FURTHER EVALUATION AND TREATMENT OF YOUR CONDITION CAN WAIT UNTIL YOU ARE SEEN IN YOUR DOCTORS OFFICE WITHIN THE NEXT 1-2 DAYS. IT IS YOUR RESPONSIBILITY TO MAKE AN APPOINTMENT FOR FOLOW-UP CARE. IF YOU HAVE A PRIMARY DOCTOR --you should call your primary doctor and schedule and appointment IF YOU DO NOT HAVE A PRIMARY DOCTOR YOU CAN CALL OUR PHYSICIAN REFERRAL HOTLINE AT . IF YOU CAN NOT AFFORD TO SEE A PHYSICIAN YOU CAN CHOSE FROM THE FOLLOWING [facility] INSTITUTIONS: [facility] [address] [place] [address] [facility] [address] [place] [address] [facility] [address] [place] [address] Additional Instructions: Call your primary care doctor TOMORROW for an appointment during the next 1-2 days.See the doctor sooner or return here if your condition worsens before your appointment time. PARUL NEVAREZ PA-C Aug 06, 2016 20:37
--- NOTE | 2016-08-06 21:44 | RADRPT ---
PROCEDURE: CT thoracic spine without contrast. CLINICAL INDICATION: Post traumatic back pain. Status post fall. TECHNIQUE: CT of the thoracic spine was performed. Axial images were obtained and reformatted at 2.5 mm slice thickness. Coronal and sagittal images were reformatted. Exam CTDIvol = 8.81 mGy and D LP = 304.40 mGy-cm. COMPARISON: None available. FINDINGS: Vertebral bodies: There is preservation of attenuation, mineralization and bony architecture. The thoracic kyphosis is preserved. No lytic or blastic lesions are present. Thoracic spinal cord: No abnormal densities seen within the spinal canal.. T1-2: No discogenic abnormality of significance is seen and there is no central canal or foraminal s tenosis. The posterior elements are unremarkable. T2-3: No discogenic abnormality of significance is seen and there is no central canal or foraminal s tenosis. The facet joints are intact. T3-4: No discogenic abnormalities significance is seen and there is no acute pathology, central can al or foraminal stenosis. The posterior elements are unremarkable T4-5: No discogenic abnormality of significance is seen and there is no facet arthropathy, central canal or foraminal stenosis. T5-6: No discogenic abnormality of significance is seen and there is no facet arthropathy, central canal or foraminal stenosis T6-7: No discogenic abnormality of significance is seen there is no central canal stenosis. The po sterior elements are unremarkable. T7-8: No discogenic abnormality of significance is seen and there is no facet arthropathy, central c anal or foraminal stenosis T8-9: No discogenic abnormality of significance is seen and there is no facet arthropathy, central canal or foraminal stenosis T9-10: No discogenic abnormality of significance is seen and there is no facet arthropathy, central canal or foraminal stenosis T10-11: No discogenic abnormality of significance is seen and there is no facet arthropathy, central canal or foraminal stenosis T11-12: No discogenic abnormality of significance is seen and there is no facet arthropathy, centra l canal or foraminal stenosis T12-L1: No discogenic abnormality of significance is seen and there is no facet arthropathy, centra l canal or foraminal stenosis Non spine related findings: No abnormalities of significance are demonstrated. RPTAT:HJJR IMPRESSION: 1. Unremarkable noncontrast CT the thoracic spine. Physician Snehal Date Time Electronically viewed and signed by Sotero Lott Physician on 08/06/2016 21:43 JR/
--- NOTE | 2016-08-06 21:46 | RADRPT ---
PROCEDURE: CT chest without contrast CLINICAL INDICATION: Status post fall with left rib pain TECHNIQUE: CT scan of the chest with contrast was performed without intravenous contrast. Coronal and sagittal images were reformatted. The CTDIvol = 5.18 mGy and DLP = 212.69 mGycm. COMPARISON: None. FINDINGS: Lungs, airway and pleura: The trachea and bronchi are patent as well as normal in caliber. The soraya gs are clear. There is no evidence of pneumothorax. The pleural spaces are clear, without effusion s. Mediastinum, heriberto and cardiovascular: The heart is normal in size. There is no evidence for perica rdial effusion. The thoracic aorta is normal in caliber. There is no evidence for hilar mass and n o mediastinal adenopathy is present. The esophagus is normal in caliber. Osseous structures and musculoskeletal findings: No erosive displaced rib fracture. The thoracic s pine, sternum and visualized shoulders are unremarkable. No chest wall abnormalities are present. The axillary regions are unremarkable. Visualized upper abdomen: No abnormalities are identified. The adrenal glands are normal bilateral ly. RPTAT:HJJR IMPRESSION: 1. Unremarkable CT scan of the chest without contrast. 2. No evidence of acute post traumatic abnormality. Physician Snehal Date Time Electronically viewed and signed by Physician Snehal on 08/06/2016 21:46 /
--- NOTE | 2016-08-06 21:49 | RADRPT ---
PROCEDURE: CT Lumbar Spine without contrast. CLINICAL INDICATION: Status post fall with post traumatic low back pain. TECHNIQUE: CT of the lumbar spine without contrast was performed. Axial images were obtained thro [facility] the lumbar spine and reformatted at 2.5 mm slice thickness. Coronal and sagittal images were ref ormatted. The CTDIvol = 11.76 mGy and DLP = 299.33 mGy-cm. COMPARISON: None available FINDINGS: Vertebral bodies: Transitional anatomy on the left at the lumbosacral junction is noted. There is p reserved mineralization and stature at every level. The lordosis is intact. Conus medularis region: Normal in attenuation and determination estimated at the L1 level. T12-L1: No discogenic abnormality of significance is seen. There is no facet arthropathy. The centr al canal is patent. There is no evidence for foraminal stenosis. L1-L2: No discogenic abnormality of significance is seen. There is no facet arthropathy. The ligamen tomas flava are normal in thickness. The central canal is patent. There is no evidence for foraminal stenosis. L2-L3: No discogenic abnormality of significance is seen. There is no facet arthropathy. The ligamen tomas flava are normal in thickness. The central canal is patent. There is no evidence for foraminal stenosis. L3-L4:No discogenic abnormality of significance is seen. There is no facet arthropathy. The ligament um flava are normal in thickness. The central canal is patent. There is no evidence for foraminal stenosis. L4-L5: No discogenic abnormality of significance is seen. There is no facet arthropathy. The ligamen tomas flava are normal in thickness. The central canal is patent. There is no evidence for foraminal stenosis. L5-S1: No discogenic abnormality of significance is seen. There is no facet arthropathy. The ligamen tomas flava are normal in thickness. The central canal is patent. There is no evidence for foraminal stenosis. Sacrum and sacroiliac joints: No abnormalities are identified, the joints are normal and symmetric. None spine related findings: No abnormalities are demonstrated. 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 Sotero Lott Physician Date Time Electronically viewed and signed by Sotero Lott Physician on 08/06/2016 21:49 JR/
--- NOTE | 2016-08-06 21:50 | RADRPT ---
PROCEDURE: CT pelvis without contrast. CLINICAL INDICATION: Status post fall with post traumatic pelvic pain TECHNIQUE: CT scan of the pelvis without contrast was performed. Sagittal and coronal reformatted images were obtained from the axial source images. CTDI = 7.24 mGy; DLP = 206.22 mGy-cm COMPARISON: None. FINDINGS: Osseous structures: Incidental transitional anatomy at the lumbosacral junction. The sacrum and co ccyx appear intact without evidence of fracture. No pelvic bone fracture is seen, the bone architec ture and mineralization are preserved. The femoral heads are normal in contour and location without fracture dislocation Musculature and soft tissues: No hematoma, muscular or subcutaneous tissue abnormality is identifie d. Other findings: Intrapelvic structures are unremarkable. There is no evidence of free fluid RPTAT:HJJR IMPRESSION: Unremarkable CT scan of the pelvis without contrast. Physician Snehal Date Time Electronically viewed and signed by Physician Snehal on 08/06/2016 21:50 /
[2016-08-06] MEDS ORDERED: BACL10TA PO (22:12)
[2016-08-06] MEDS ORDERED: IBUP-1542 PO (22:12)
[2016-08-06 22:28] VITALS: BP 115/54; PULSE 87; RESP 18
== END 2016-08-06 22:32 | disposition home or self-care (01) ==
LOC: FTE 18:39
DX: M54.9 Dorsalgia, unspecified (principal); R07.81 Pleurodynia; G89.11 Acute pain due to trauma
CPT/HCPCS: 71250; 72128; 72131; 72192; 81001; 96372; J1885; Z7502; Z7610

== ENCOUNTER 2017-05-27 03:04 | Emergency (ER) | END 2017-05-27 03:41 | disposition home or self-care (01) ==